=== PATIENT | male | born 1990 | race Two or more races ===

== ENCOUNTER 2016-06-17 09:21 | Inpatient (IN) | payer BC ==
[~2016-06-17] VITALS: Ht 170.2 cm; Wt 83.9 kg
[2016-06-17 11:00] VITALS: BP 128/67
[2016-06-17 11:36] VITALS: BP 128/67
[2016-06-17] MEDS ORDERED: IV NS 0.9% 1,000 ML IV PRN (13:05)
[2016-06-17] MEDS ORDERED: PIPERACILLIN /TAZOBACTAM 4.5 G in IV D5W 50 ML IV SCH (13:30)
[2016-06-17] MEDS ORDERED: ONDANSETRON HCL/PF 4 MG/2 ML VIAL IVP PRN (13:30)
[2016-06-17] MEDS ORDERED: IV NS 0.9% 1,000 ML ONE (13:42)
[2016-06-17] MEDS ORDERED: AMPH10TA4 PO (13:48)
[2016-06-17] MEDS ORDERED: FLUO20CA36 PO (13:48)
[2016-06-17] MEDS ORDERED: IV SET PRIMARY PUMP SET 1 EA INFUS.SET MC ONE (13:56)
[2016-06-17] MEDS ORDERED: LORAZEPAM INJ 2 MG/ML VIAL IV PRN (15:00)
[2016-06-17 15:43] LABS: CALCIUM, SERUM 9.2 mg/dL (8.5-10.1); POTASSIUM 3.8 mmol/L (3.5-5.1)
[2016-06-17 16:00] VITALS: BP 116/64
[2016-06-17 16:52] LABS: BASOPHILS % (AUTO) 0.2 % (0.0-2.0); DIFF TOTAL % 100 %; EOSINOPHILS % (AUTO) 0.1 % (0.0-6.0); HEMATOCRIT 46 % (39-51); HEMOGLOBIN 15.1 g/dL (13.5-17.5); LYMPHOCYTES # (AUTO) 2.1 /CMM (0.8-4.8); LYMPHOCYTES % (AUTO) 18.4 % (20.0-44.0); MEAN CORPUSCULAR HEMOGLOBIN 32 PG (26.0-33.0); MEAN CORPUSCULAR HGB CONC 33 g/dl (31.0-36.0); MEAN CORPUSCULAR VOLUME 95 fL (80-96); MONOCYTES # (AUTO) 1.1 /CMM (0.1-1.30); MONOCYTES % (AUTO) 10.1 % (2.0-12.0); NEUTROPHILS # (AUTO) 7.9 /CMM (1.8-8.9); NEUTROPHILS % (AUTO) 71.2 % (43.0-81.0); PLATELET COUNT (AUTO) 311 /CMM (150-450); WHITE BLOOD COUNT (AUTO) 11.1 K/uL (4.3-11.0)
[2016-06-17 17:10] LABS: PHOSPHORUS 3.7 mg/dL (2.5-4.9)
[2016-06-17] MEDS ORDERED: SECONDARY IV SET 1 EA INFUS.SET MC ONE (17:20)
[2016-06-17] MEDS: PIPERACILLIN /TAZOBACTAM 3.375 G in IV D5W 50 ML IV SCH (17:26)
[2016-06-17] MEDS ORDERED: BUPIVACAINE MPF W/EPI 0.25% 30 ML VIAL ONE ×2 (18:28→21:34)
[2016-06-17] MEDS ORDERED: LIDOCAINE HCL/PF 1% 30 ML SDV ONE ×2 (18:28→21:34)
[2016-06-17] MEDS ORDERED: MIDAZOLAM HCL 2 MG/2ML VIAL ONE ×2 (19:30→22:15)
[2016-06-17] MEDS ORDERED: HYDROMORPHONE INJ 2 MG/ML DISP.SYRIN ONE ×2 (19:30→22:15)
[2016-06-17] MEDS ORDERED: SUCCINYLCHOLINE CHLORIDE 20 MG/ML VIAL ONE ×2 (19:31→22:15)
[2016-06-17] MEDS ORDERED: ROCURONIUM BROMIDE 50 MG/5 ML ONE ×2 (19:31→22:15)
[2016-06-17] MEDS ORDERED: FENTANYL PF 100MCG/2ML AMPUL ONE ×2 (19:31→22:15)
[2016-06-17 20:08] VITALS: BP 130/68
[2016-06-18] MEDS ORDERED: ANESTHESIA TRAY IN PYXIS 1 EA TRAY MC ONE (00:08)
[2016-06-18] MEDS ORDERED: FENTANYL PF 100MCG/2ML AMPUL ONE (00:10)
[2016-06-18] MEDS ORDERED: ONDANSETRON HCL/PF 4 MG/2 ML VIAL ONE ×2 (00:10→05:17)
[2016-06-18] MEDS ORDERED: HYDROMORPHONE 1 MG/1 ML DISP.SYRIN ONE (00:26)
[2016-06-18] MEDS ORDERED: ALBUTEROL FS 2.5 MG/3 ML VIAL.NEB ONE (00:29)
[2016-06-18] MEDS: MORPHINE SULFATE INJ 2 MG/ML DISP.SYRIN IV PRN ×4 (01:38→13:12)
[2016-06-18] MEDS ORDERED: IV LR 1000 ML 1,000 ML IV PRN (02:30)
[2016-06-18] MEDS ORDERED: ONDANSETRON HCL/PF 4 MG/2 ML VIAL IV PRN (02:30)
[2016-06-18] MEDS ORDERED: ALBUTEROL FS 2.5 MG/3 ML VIAL.NEB NEB PRN (02:30)
[2016-06-18] MEDS ORDERED: IV LR 1000 ML 1,000 ML ONE (05:02)
[2016-06-18] MEDS: PIPERACILLIN /TAZOBACTAM 3.375 G in IV D5W 50 ML IV SCH ×4 (05:21→11:17)
[2016-06-18 06:51] LABS: BASOPHILS % (AUTO) 0.1 % (0.0-2.0); DIFF TOTAL % 100 %; HEMATOCRIT 43 % (39-51); HEMOGLOBIN 14.6 g/dL (13.5-17.5); LYMPHOCYTES # (AUTO) 0.5 /CMM (0.8-4.8); LYMPHOCYTES % (AUTO) 3.4 % (20.0-44.0); MEAN CORPUSCULAR HEMOGLOBIN 32 PG (26.0-33.0); MEAN CORPUSCULAR HGB CONC 34 g/dl (31.0-36.0); MEAN CORPUSCULAR VOLUME 95 fL (80-96); MONOCYTES # (AUTO) 0.5 /CMM (0.1-1.30); MONOCYTES % (AUTO) 3.3 % (2.0-12.0); NEUTROPHILS # (AUTO) 13.4 /CMM (1.8-8.9); NEUTROPHILS % (AUTO) 93.2 % (43.0-81.0); PLATELET COUNT (AUTO) 299 /CMM (150-450); RED BLOOD CELL COUNT(AUTO) 4.56 MIL/uL (4.5-6.0); WHITE BLOOD COUNT (AUTO) 14.4 K/uL (4.3-11.0)
[2016-06-18 07:29] LABS: CALCIUM, SERUM 8.8 mg/dL (8.5-10.1); POTASSIUM 3.9 mmol/L (3.5-5.1)
[2016-06-18 07:37] LABS: THYROID STIMULATING HORMONE 0.457 uIU/mL (0.358-3.74)
[2016-06-18 08:00] VITALS: BP 115/62
[2016-06-18] MEDS ORDERED: PANTOPRAZOLE 40 MG VIAL IV SCH (09:00)
[2016-06-18 15:42] VITALS: BP 114/93
== END 2016-06-18 16:35 | disposition home or self-care (01) | DRG 343 ==
LOC: MEDSG2 11:12
PROC: 0DTJ4ZZ Resection of Appendix, Percutaneous Endoscopic Approach (ICD-10-PCS; principal; 2016-06-17 23:00)
DX: K35.80 Unspecified acute appendicitis (principal); J45.909 Unspecified asthma, uncomplicated; F32.9 Major depressive disorder, single episode, unspecified; K21.9 Gastro-esophageal reflux disease without esophagitis
CPT/HCPCS: 36415; 71010-TC; 80048-TC; 80061-TC; 83735-TC; 84100-TC; 84443-TC; 85025-TC; 87081-TC; 88304-TC; 88305-TC; C9113; J0330; J1170; J2250; J2270; J2405; J2543; J3010; J3490; J7030; J7060; J7120; Z7610